=== PATIENT | male | born 1960 | race Caucasian/White ===

== ENCOUNTER 2021-04-25 12:28 | Emergency (ER) | payer MEDICARE, MEDICAID ==
[~2021-04-25] VITALS: Ht 177.8 cm; Wt 77.0 kg
--- NOTE | 2021-04-25 16:42 | NUR ---
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
[2021-04-25] MEDS ORDERED: PROPOFOL 10 MG/ML, 20ML ONE ×2 (17:46→17:59)
[2021-04-25] MEDS ORDERED: PROPOFOL 10 MG/ML, 20ML IVPush ONE (18:00)
[2021-04-25 18:40] VITALS: BP 142/88
--- NOTE | 2021-04-25 18:41 | NUR ---
CONSENT SIGNED PRIOR TO PROCEDURE. TIME OUT PREFORMED PRIOR TO START. EDMD AT BEDSIDE ALONG WITH EGD TECH AND GI MD. PT TOLERATED PROCEDURE WELL. PT [id number] AT THIS TIME.
== END 2021-04-25 19:05 | disposition home or self-care (01) ==
LOC: ED 13:30
DX: T18.128A Food in esophagus causing other injury, initial encounter (principal); X58.XXXA Exposure to other specified factors, initial encounter; Y93.89 Activity, other specified; Y92.89 Other specified places as the place of occurrence of the external cause; Y99.8 Other external cause status
CPT/HCPCS: 99285